=== PATIENT | female | born 1985 | race African-American/Black ===

== ENCOUNTER 2016-10-28 11:39 | Emergency (ER) | payer SELFPAY ==
[~2016-10-28] VITALS: Ht 160 cm; Wt 80.0 kg
[~2016-10-28 11:39] MED LIST: DILA100C PO; PHEN100 PO
[2016-10-28 11:42] VITALS: BP 163/80; PULSE 104; RESP 14; TEMP 98.2; O2SAT 97
[2016-10-28] MEDS ORDERED: PHEN100C PO ×2 (12:51→13:39)
--- NOTE | 2016-10-28 13:39 | PD ---
HPI Chief Complaint: Medication Refill Request Time Seen by Provider: 13:37 Travel History International Travel<30 days: No Contact w/Intl Traveler<30days: No Traveled to known affect area: No History of Present Illness HPI 31-year-old male presents to the emergency department with 2 complaints. Her first complaint is a request for medication refill on her Dilantin for her seizure disorder. Has been out of her medications since a few days after [place]. Has not had a seizure for over a month. Takes Dilantin 100 mg 3 times daily. Her second complaint is urinary dysuria, urgency, frequency 2 weeks. Denies lower back pain. Denies fever, chills, nausea, vomiting. Denies abdominal pain. Denies discharge, odor, itch, lesions. Denies being sexually active. Denies risk of . Denies contraception use. Allergies to penicillin and sulfa. No other modifying factors or associated signs and symptoms. PFSH Past Medical History Asthma: No Blood Disorders: No Anxiety: Yes Depression: Yes Cancer: Yes ("foot cancer--right foot" ) Cardiovascular Problems: Yes ("Pulmonary emobolism") Chemotherapy: No Cerebrovascular Accident: No Endocrine: No Gastrointestinal Disorders: Yes (cholecystectomy, hx stomach ulcers ) Genitourinary: No Immune Disorder: No Musculoskeletal: No Neurologic: Yes (seizures ) Psychiatric: Yes Reproductive: No Respiratory: Yes (PE) Migraines: No Radiation Therapy: No Seizures: Yes Sleep Apnea: Yes (CPAP at night--not compliant ) ?: Not : 1 Para: 1 Miscarriage: 0 : 0 Past Surgical History Cholecystectomy: Yes Other Surgery: Yes (gallbladder sx, foot sx, oral sx ) Social History Alcohol Use: No Tobacco Use: Yes (7 CIGARETTES/DAY) Substance Use: Yes (MARIJUANA ) Allergies-Medications (Allergen,Severity, Reaction): Coded Allergies: Penicillin (Verified Allergy, Severe, Hives, 10/28/16) Sulfa (Verified Allergy, Intermediate, SWELLING, 10/28/16) Reported Meds & Prescriptions Reported Meds & Active Scripts Active Phenytoin Extended 100 Mg Cap 100 Mg PO TID Review of Systems Except as stated in HPI: all other systems reviewed are Neg Physical Exam Narrative GENERAL: Well-nourished, well-developed female patient, in no acute distress SKIN: Warm and dry. No rash. HEAD: Atraumatic. Normocephalic. EYES: Pupils equal and round. No scleral icterus. No injection or drainage. ENT: Mucosa pink and moist. NECK: Trachea midline. CARDIOVASCULAR: Regular rate and rhythm. No murmur appreciated. RESPIRATORY: No accessory muscle use. Clear to auscultation. Breath sounds equal bilaterally. GASTROINTESTINAL: Abdomen soft, non-tender, nondistended. Hepatic and splenic margins not palpable. Bowel sounds are active 4 quadrants. Bladder nontender and nondistended. MUSCULOSKELETAL: No obvious deformities. No clubbing. No cyanosis. No edema. BACK: No CVA tenderness NEUROLOGICAL: Awake and alert. Oriented 3. No obvious cranial nerve deficits. Motor grossly within normal limits. Normal speech. Moves all extremities. 5/5 strength to all extremities. PSYCHIATRIC: Appropriate mood and affect; insight and judgment normal. Data Data Last Documented VS Vital Signs Date Time Temp Pulse Resp B/P Pulse Ox O2 Delivery O2 Flow Rate FiO2 10/28/16 11:42 98.2 104 14 163/80 97 Orders Urinalysis - C+S If Indicated (10/28/16 13:43) Ed Urine Pregnancytest Poc (10/28/16 13:59) Labs Laboratory Tests Test 10/28/16 13:50 Urine Color YELLOW Urine Turbidity CLEAR Urine pH 6.5 Urine Specific [place] 1.013 Urine Protein NEG mg/dL Urine Glucose (UA) NEG mg/dL Urine Ketones NEG mg/dL Urine Occult Blood NEG Urine Nitrite NEG Urine Bilirubin NEG Urine Urobilinogen LESS THAN 2.0 MG/DL Urine Leukocyte Esterase NEG Urine WBC LESS THAN 1 /hpf Urine Squamous Epithelial 1 /hpf Cells Urine Mucus FEW /lpf Microscopic Urinalysis Comment CULT NOT INDICATED MDM Medical Decision Making Medical Screen Exam Complete: Yes Emergency Medical Condition: Yes Medical Record Reviewed: Yes Differential Diagnosis Medication refill, urinary tract infection, seizure disorder, cystitis Narrative Course 31-year-old female requesting medication refill on Dilantin for her seizure disorder and complaining of urinary symptoms. Patient afebrile. Denies fever, chills, nausea, vomiting. No CVA tenderness. Urine negative. Urinalysis ordered. 1447: Urinalysis with no signs of infection. Dilantin prescribed for home. Patient is medically cleared and stable for discharge. Discussed reasons to return to the emergency department. Instructed patient to follow up with primary care provider. Patient agrees with treatment plan. The patients vital signs are stable and the patient is stable for outpatient follow-up and treatment. Patient discharged home, stable and in no acute distress. Diagnosis Primary Impression: Encounter for medication refill Additional Impression: Dysuria Referrals: Primary Care Physician Patient Instructions: General Instructions, Medication Refill, ED Additional Instructions: Tylenol or ibuprofen instructed as needed for pain and inflammation Follow-up with primary care provider Return to the emergency department immediately with worsening of symptoms Med/Other Pt SpecificInfo: Prescription(s) given Scripts Phenytoin Extended 100 Mg [id number] Mg PO TID #90 CAP Ref 0 Prov:Gabbie Johnson 10/28/16 Disposition: 01 DISCHARGE HOME Condition: Stable Gabbie Johnson Oct 28, 2016 13:39
[2016-10-28 14:06] LABS: BLOOD, URINE NEG (NEG); COMMENT (UR) CULT NOT INDICATED; CULTURE IF INDICATED CULT NOT INDICATED; GLUCOSE,URINE NEG (NEG); KETONE, URINE NEG (NEG); MUCUS URINE FEW /lpf (OCC); NITRITE,URINE NEG (NEG); PH, URINE 6.5 (5.0-8.5); SQUAMOUS EPITHELIAL CELL URINE 1 /hpf (0-5); URINE COLOR YELLOW (YELLW/STRAW)
== END 2016-10-28 14:59 | disposition home or self-care (01) ==
LOC: NEPB 11:39
DX: R30.0 Dysuria (principal); G40.909 Epilepsy, unspecified, not intractable, without status epilepticus; G47.30 Sleep apnea, unspecified; Z72.0 Tobacco use; Z76.0 Encounter for issue of repeat prescription; Z86.711 Personal history of pulmonary embolism; Z87.19 Personal history of other diseases of the digestive system; Z86.59 Personal history of other mental and behavioral disorders; Z87.09 Personal history of other diseases of the respiratory system
CPT/HCPCS: 81001; 84703; 99283

== ENCOUNTER 2016-12-06 13:38 | Emergency (ER) | payer SELFPAY ==
[~2016-12-06] VITALS: Ht 157.5 cm; Wt 90.0 kg
[~2016-12-06 13:38] MED LIST changes: -DILA100C PO; -PHEN100 PO; +PHEN100C PO
[2016-12-06 13:39] VITALS: BP 129/76; PULSE 96; RESP 14; TEMP 98; O2SAT 96
[2016-12-06] MEDS ORDERED: PHEN100C PO (16:07)
--- NOTE | 2016-12-06 16:07 | PD ---
HPI Chief Complaint: Seizure Time Seen by Provider: 16:02 Travel History International Travel<30 days: No Contact w/Intl Traveler<30days: No Traveled to known affect area: No History of Present Illness HPI Patient is a 31-year-old female presenting to the emergency department for refill of her seizure medication, Dilantin. Patient states she's been out for approximately 2 days. Patient reports having a dream that she had a seizure this morning which prompted her visit to the emergency department for medication refill. Patient denies any actual seizure activity this morning or since she's been out of her medications. She denies any other complaints at this time. PFSH Past Medical History Asthma: No Blood Disorders: No Anxiety: Yes Depression: Yes Cancer: Yes ("foot cancer--right foot" ) Cardiovascular Problems: Yes ("Pulmonary emobolism") Chemotherapy: No Cerebrovascular Accident: No Endocrine: No Gastrointestinal Disorders: Yes (cholecystectomy, hx stomach ulcers ) Genitourinary: No Immune Disorder: No Musculoskeletal: No Neurologic: Yes (seizures ) Psychiatric: Yes Reproductive: No Respiratory: Yes (PE) Migraines: No Radiation Therapy: No Seizures: Yes Sleep Apnea: Yes (CPAP at night--not compliant ) ?: Not LMP: 12/02/16 : 1 Para: 1 Miscarriage: 0 : 0 Past Surgical History Cholecystectomy: Yes Other Surgery: Yes (gallbladder sx, foot sx, oral sx ) Social History Alcohol Use: No Tobacco Use: Yes (7 CIGARETTES/DAY) Substance Use: Yes (MARIJUANA ) Allergies-Medications (Allergen,Severity, Reaction): Coded Allergies: Penicillin (Verified Allergy, Severe, Hives, 10/28/16) Sulfa (Verified Allergy, Intermediate, SWELLING, 10/28/16) Reported Meds & Prescriptions Reported Meds & Active Scripts Active Phenytoin Extended 100 Mg Cap 100 Mg PO TID Review of Systems Except as stated in HPI: all other systems reviewed are Neg Physical Exam Narrative GENERAL: Overweight, well-developed, alert female. Resting comfortably in no acute distress. SKIN: Warm and dry. HEAD: Atraumatic. Normocephalic. EYES: Pupils equal and round. No scleral icterus. No injection or drainage. ENT: No nasal bleeding or discharge. Mucous membranes pink and moist. NECK: Trachea midline. No JVD. CARDIOVASCULAR: Regular rate and rhythm. No murmur appreciated. RESPIRATORY: No accessory muscle use. Clear to auscultation. Breath sounds equal bilaterally. GASTROINTESTINAL: Abdomen soft, non-tender, nondistended. Hepatic and splenic margins not palpable. MUSCULOSKELETAL: No obvious deformities. No clubbing. No cyanosis. No edema. NEUROLOGICAL: Awake and alert. No obvious cranial nerve deficits. Motor grossly within normal limits. Normal speech. PSYCHIATRIC: Appropriate mood and affect; insight and judgment normal. Data Data Last Documented VS Vital Signs Date Time Temp Pulse Resp B/P Pulse Ox O2 Delivery O2 Flow Rate FiO2 12/06/16 13:39 98.0 96 14 129/76 96 Room Air Orders Complete Blood Count With Diff (12/06/16 15:05) Basic Metabolic Panel (Bmp) (12/06/16 15:05) Phenytoin (Dilantin) (12/06/16 15:05) MDM Medical Decision Making Medical Screen Exam Complete: Yes Emergency Medical Condition: Yes Interpretation(s) Vital Signs Date Time Temp Pulse Resp B/P Pulse Ox O2 Delivery O2 Flow Rate FiO2 12/06/16 13:39 98.0 96 14 129/76 96 Room Air Differential Diagnosis Medication refill versus seizure disorder versus subtherapeutic dosing versus noncompliance versus other Narrative Course Patient's 31 year old female presenting to emergency room for a refill of her Dilantin. She denies any new complaints. Physical examination is unremarkable. Patient reports a dream of a seizure this morning which prompted her emergency department visit today. She has been out of the Dilantin for 2 days now. She has had no seizure activity since that time. Patient will be provided with a prescription refill for her Dilantin. She will also be put in contact with the financial counselor in order to obtain her patient assistance card. She reports trying to make an appointment with the clinic but did not have the appropriate documentation. Patient was encouraged to return to emergency department for any new or worsening symptoms, she was encouraged to all of the clinic or with a primary doctor for further medication refills. Patient verbalized understanding of these instructions. Patient is stable for discharge. Diagnosis Primary Impression: Encounter for medication refill Additional Impression: Seizure disorder Referrals: [facility] Patient Instructions: General Instructions, Recurrent Seizures in Adults (GEN) Additional Instructions: Follow-up with your primary doctor or at the [facility] Return to emergency department for any new or worsening symptoms Do not let medications run out to prevent seizures. Med/Other Pt SpecificInfo: Prescription(s) given Scripts Phenytoin Extended 100 Mg [id number] Mg PO TID #90 CAP Ref 0 Prov:Antonieta Shaffer 12/06/16 Disposition: 01 DISCHARGE HOME Condition: Stable Antonieta Shaffer Dec 06, 2016 16:07
== END 2016-12-06 16:19 | disposition home or self-care (01) ==
LOC: NETRI 13:38
DX: R56.9 Unspecified convulsions (principal); F41.8 Other specified anxiety disorders; Z72.0 Tobacco use; F12.10 Cannabis abuse, uncomplicated; Z76.0 Encounter for issue of repeat prescription
CPT/HCPCS: 99282

== ENCOUNTER 2017-01-31 16:36 | Emergency (ER) | payer SELFPAY ==
[~2017-01-31] VITALS: Ht 157.5 cm; Wt 95.5 kg
[2017-01-31 16:40] VITALS: BP 136/88; PULSE 96; RESP 13; TEMP 97.8; O2SAT 100
[2017-01-31] MEDS ORDERED: PHEN100C PO (17:25)
--- NOTE | 2017-01-31 17:26 | PD ---
HPI Chief Complaint: Medication Refill Request Time Seen by Provider: 17:23 Travel History International Travel<30 days: No Contact w/Intl Traveler<30days: No Traveled to known affect area: No History of Present Illness HPI 31-year-old female presents to the emergency department requesting a refill on her Dilantin for seizure disorder. She has not taken her medication in about a week. She denies recent seizure. Has no other medical complaints. No other modifying factors or associated signs and symptoms. PFSH Past Medical History Asthma: No Blood Disorders: No Anxiety: Yes Depression: Yes Cancer: Yes ("foot cancer--right foot" ) Cardiovascular Problems: Yes ("Pulmonary emobolism") Chemotherapy: No Cerebrovascular Accident: No Endocrine: No Gastrointestinal Disorders: Yes (cholecystectomy, hx stomach ulcers ) Genitourinary: No Immune Disorder: No Musculoskeletal: No Neurologic: Yes (seizures ) Psychiatric: Yes Reproductive: No Respiratory: Yes (PE, SLEEP APNEA) Migraines: No Radiation Therapy: No Seizures: Yes Sleep Apnea: Yes (CPAP at night--not compliant ) ?: Not : 1 Para: 1 Miscarriage: 0 : 0 Past Surgical History Cholecystectomy: Yes Other Surgery: Yes (gallbladder sx, foot sx, oral sx ) Social History Alcohol Use: No Tobacco Use: Yes (7 CIGARETTES/DAY) Substance Use: Yes (MARIJUANA ) Allergies-Medications (Allergen,Severity, Reaction): Coded Allergies: Penicillin (Verified Allergy, Severe, Hives, 01/31/17) Sulfa (Verified Allergy, Intermediate, SWELLING, 01/31/17) Reported Meds & Prescriptions Reported Meds & Active Scripts Active Phenytoin Extended 100 Mg Cap 100 Mg PO TID Review of Systems Except as stated in HPI: all other systems reviewed are Neg Physical Exam Narrative GENERAL: Well-nourished, well-developed -[place] female patient, in no acute distress SKIN: Warm and dry. HEAD: Atraumatic. Normocephalic. EYES: Pupils equal and round. No scleral icterus. No injection or drainage. ENT: Mucosa pink and moist. Airway patent. NECK: Trachea midline. CARDIOVASCULAR: Regular rate. RESPIRATORY: No accessory muscle use. GASTROINTESTINAL: Obese. MUSCULOSKELETAL: No obvious deformities. No clubbing. No cyanosis. No edema. NEUROLOGICAL: Awake and alert. Oriented 3. No obvious cranial nerve deficits. Motor grossly within normal limits. Normal speech. PSYCHIATRIC: Appropriate mood and affect; insight and judgment normal. Data Data Last Documented VS Vital Signs Date Time Temp Pulse Resp B/P Pulse Ox O2 Delivery O2 Flow Rate FiO2 01/31/17 17:00 01/31/17 16:40 97.8 96 13 100 Room Air MDM Medical Decision Making Medical Screen Exam Complete: Yes Emergency Medical Condition: Yes Medical Record Reviewed: Yes Differential Diagnosis Medication refill, seizure disorder, medical clearance Narrative Course 31-year-old female requesting medication refill on Dilantin 100 mg 3 times a day for seizure disorder. She has not taken her medication for about a week. Denies recent seizures. Has no other medical complaints. Dilantin prescribed for home. Patient verbalizes understanding and agreement with treatment plan. Patient is medically cleared and stable for discharge. Discussed reasons to return to the emergency department. Instructed patient to follow up with primary care provider. Patient agrees with treatment plan. The patients vital signs are stable and the patient is stable for outpatient follow-up and treatment. Patient discharged home, stable and in no acute distress. Diagnosis Primary Impression: Encounter for medication refill Referrals: Neurologist Primary Care Physician Patient Instructions: General Instructions, Medication Refill, ED Departure Forms: Tests/Procedures, Work Release Enter return to work date: Feb 01, 2017 Additional Instructions: Take medication as prescribed Follow-up with primary care provider Follow-up with neurology Return to the emergency department immediately with any worsening of symptoms Med/Other Pt SpecificInfo: Prescription(s) given Scripts Phenytoin Extended 100 Mg [id number] Mg PO TID #90 CAP Ref 0 Prov:Gabbie Johnson 01/31/17 Disposition: 01 DISCHARGE HOME Condition: Stable Gabbei Johnson Jan 31, 2017 17:26
== END 2017-01-31 17:36 | disposition home or self-care (01) ==
LOC: NEPK 16:36
DX: G40.909 Epilepsy, unspecified, not intractable, without status epilepticus (principal); Z76.0 Encounter for issue of repeat prescription
CPT/HCPCS: 99281

== ENCOUNTER 2017-03-20 11:53 | Emergency (ER) | payer SELFPAY ==
[~2017-03-20] VITALS: Ht 157.5 cm; Wt 92.0 kg
[2017-03-20 11:59] VITALS: BP 133/94; PULSE 104; RESP 16; TEMP 97.8; O2SAT 99
--- NOTE | 2017-03-20 12:12 | PD ---
HPI . medication refill and intermittent headache for 1 week Chief Complaint: Headache Time Seen by Provider: 12:12 Travel History International Travel<30 days: No Contact w/Intl Traveler<30days: No Traveled to known affect area: No History of Present Illness HPI 31-year-old female with history of seizure disorder here requesting refill on her Dilantin. Patient tells me that she needs a supply of her Dilantin as she does not have a local primary care doctor. She says that while she is here she would like to discuss the fact that she has had intermittent headache for the past week. She admits to sinus pressure and congestion. She has not tried any [id number] remedies for this headache. She rates the pain as mild to moderate. She denies any nausea or vomiting. She has no neuro symptoms associated with this headache. She denies any visual changes. She denies any head injury. PFSH Past Medical History Asthma: No Blood Disorders: No Anxiety: Yes Depression: Yes Cancer: Yes ("foot cancer--right foot" ) Cardiovascular Problems: Yes ("Pulmonary emobolism") Chemotherapy: No Cerebrovascular Accident: No Endocrine: No Gastrointestinal Disorders: Yes (cholecystectomy, hx stomach ulcers ) Genitourinary: No Headaches: No Immune Disorder: No Implanted Vascular Access Dvce: No Musculoskeletal: No Neurologic: Yes (seizures ) Psychiatric: Yes Reproductive: No Respiratory: Yes (PE) Migraines: No Radiation Therapy: No Seizures: Yes Sleep Apnea: Yes (CPAP at night--not compliant ) ?: Not LMP: ONE WEEK AGO : 1 Para: 1 Miscarriage: 0 : 0 Past Surgical History Cholecystectomy: Yes Other Surgery: Yes (gallbladder sx, foot sx, oral sx ) Social History Alcohol Use: No Tobacco Use: Yes (7 CIGARETTES/DAY) Substance Use: Yes (MARIJUANA ) Allergies-Medications (Allergen,Severity, Reaction): Coded Allergies: Penicillin (Verified Allergy, Severe, Hives, 01/31/17) Sulfa (Verified Allergy, Intermediate, SWELLING, 01/31/17) Reported Meds & Prescriptions Reported Meds & Active Scripts Active Phenytoin Extended 100 Mg Cap 100 Mg PO TID 14 Days Flonase Nasal [place] (Fluticasone Nasal [place]) 50 Mcg/Act [place] 50 Mcg EACH NARE BID Zithromax Z-Arun (Azithromycin) 250 Mg Dspk 250 Mg PO DIRECTED 500 MG (2 tabs) day 1, then 1 tab days 2-5. Review of Systems General / Constitutional: No: Fever Eyes: No: Visual changes HENT: Positive: Headaches, Congestion Cardiovascular: No: Chest Pain or Discomfort Respiratory: No: Shortness of Breath Gastrointestinal: No: Abdominal Pain Genitourinary: No: Dysuria Musculoskeletal: No: Pain Skin: No Rash Neurologic: Positive: Headache, No: Weakness, Dizziness, Focal Abnormalities, Coordination Problem, Tremor Psychiatric: No: Depression Endocrine: No: Polydipsia Hematologic/Lymphatic: No: Easy Bruising Physical Exam Narrative GENERAL: AAO x 3, no acute distress, Well-nourished, well-developed patient. SKIN: Warm and dry. No visible rashes or bruising. HEAD: Normocephalic and atraumatic. EYES: No scleral icterus. No injection or drainage. EOM intact, PERRLA ENT: No nasal drainage noted. Mucous membranes pink. Airway patent. frontal sinus tenderness, causes headache when touched, b/l clear effusions of ear, + post nasal drip oropharynx NECK: Supple, trachea midline. No JVD. CARDIOVASCULAR: Regular rate and rhythm without murmurs, gallops, or rubs. RESPIRATORY: Breath sounds equal bilaterally. No accessory muscle use. No rhonchi or rales. GASTROINTESTINAL: Abdomen soft, non-tender, nondistended. EXTREMITIES: No cyanosis or edema. NEURO: CN II through XII intact, machine umbrella tipper strength normal bilaterally. Upper and lower extremity strength 5 out of 5. Cerebellar function normal. No motor deficits BACK: Nontender without obvious deformity. No CVA tenderness. PSYCH: AAO x 3, normal affect. Data Data Last Documented VS Vital Signs Date Time Temp Pulse Resp B/P Pulse Ox O2 Delivery O2 Flow Rate FiO2 03/20/17 11:59 97.8 104 16 133/94 99 MDM Medical Decision Making Medical Screen Exam Complete: Yes Emergency Medical Condition: Yes Medical Record Reviewed: Yes Differential Diagnosis sinus headache, sinusitis, seizure disorder, less likely migraines, less likely head injury (brain bleed) Narrative Course 31 yr old female with hx of seizure disorder here requesting refill on her dilantin. She also had a headache for the past week and would like an exam. Examination was done and reveals sinusitis and likely sinus related headache. I recommend antibiotics for sinusitis and flonase. I have provided her with 2 weeks worth of dilantin. Her levels were last done in 06/2016 and were low. She has not had a seizure in 8 mts. I have discussed with Dr. Leonardo and he agrees with refills for 2 weeks and outpt f/u. I explained to patient that she will need to obtain her refills from a primary care doctor or neurologist. Diagnosis Primary Impression: Sinus headache Additional Impressions: Acute sinusitis Qualified Code: J01.10 - Acute frontal sinusitis, recurrence not specified Medication refill Referrals: [facility] Patient Instructions: General Instructions Additional Instructions: Please return to emergency department if your symptoms return or worsen. Follow up with your primary care provider. Take medications as prescribed. As we discussed, you will need to establish with a local primary care physician for further refills on your Dilantin. You also need to see a neurologist. Med/Other Pt SpecificInfo: Prescription(s) given Scripts Phenytoin Extended 100 Mg [id number] Mg PO TID 14 Days Ref 0 Prov:Nito Leonardo MD 03/20/17 Fluticasone Nasal [place] (Flonase Nasal [place])50 Mcg/Act Spray50 Mcg EACH NARE BID #1 BOTTLE Ref 0 Prov:Nito Leonardo MD 03/20/17 Azithromycin (Zithromax Z-Arun)250 Mg [id number] Mg PO DIRECTED #1 DSPK 500 MG (2 tabs) day 1, then 1 tab days 2-5. Prov:Nito Leonardo MD 03/20/17 Disposition: 01 DISCHARGE HOME Condition: Stable Ariela Hanley March 20, 2017 12:12
[2017-03-20] MEDS ORDERED: FLUT1SPR5 EACH NARE (12:15)
[2017-03-20] MEDS ORDERED: ZITHTAB PO (12:15)
[2017-03-20] MEDS ORDERED: PHEN100C PO (12:15)
== END 2017-03-20 12:26 | disposition home or self-care (01) ==
LOC: NEPD 11:53
DX: R51 Headache (principal); J01.10 Acute frontal sinusitis, unspecified; G47.30 Sleep apnea, unspecified; Z76.0 Encounter for issue of repeat prescription; Z86.59 Personal history of other mental and behavioral disorders; Z86.79 Personal history of other diseases of the circulatory system; Z87.19 Personal history of other diseases of the digestive system; Z86.69 Personal history of other diseases of the nervous system and sense organs; Z86.711 Personal history of pulmonary embolism
CPT/HCPCS: 99284